=== PATIENT | male | born 1965 | race Native Hawaiian/Other Pacific Islander ===

== ENCOUNTER 2019-12-04 07:00 | Inpatient (IN) | payer OTHER ==
[~2019-12-04] VITALS: Ht 167.6 cm; Wt 78.0 kg
[~2019-12-04 07:00] MED LIST: LOSA1TAB37 PO; PRAV40TA3 PO; TENO300 PO
[2019-12-04 07:20] LABS: GLUCOSE,POINT OF CARE 179 MG/DL (70-110)
[2019-12-04 08:26] LABS: BASOPHILS % (AUTO) 0.9 % (0.0-2.0); EOSINOPHILS % (AUTO) 2.8 % (1.0-6.0); HEMATOCRIT 45.9 % (41-53); HEMOGLOBIN 15.9 g/dL (13.5-17.5); LYMPHOCYTES # (AUTO) 1.8 K/uL (1.0-4.8); LYMPHOCYTES % (AUTO) 20.4 % (22.0-44.0); MEAN CORPUSCULAR HEMOGLOBIN 31.1 pg (26.0-34.0); MEAN CORPUSCULAR HGB CONC 34.7 G/dL (31.0-37.0); MEAN CORPUSCULAR VOLUME 90 fL (80-100); MONOCYTES # (AUTO) 0.8 K/uL (0.1-1.0); MONOCYTES % (AUTO) 9.2 % (2.0-9.0); NEUTROPHILS # (AUTO) 5.9 K/uL (1.8-7.7); NEUTROPHILS % (AUTO) 66.7 % (40.0-70.0); PLATELET COUNT (AUTO) 168 K/uL (150-450); RED BLOOD CELL COUNT(AUTO) 5.13 MIL/uL (4.50-5.90); RED CELL DISTRIBUTION WIDTH 13.7 % (11.5-14.5)
[2019-12-04] MEDS ORDERED: ASPIRIN 325 MG TABLET PO ONE (08:30)
[2019-12-04 08:38] LABS: PROTHROMBIN TIME 10.4 SEC (9.4-11.6)
[2019-12-04 08:40] LABS: ANION GAP 7 mmol/L (8-16); CARBON DIOXIDE 27 mmol/L (22-29); CHLORIDE 103 mmol/L (98-107); CREATININE 1.09 mg/dL (0.60-1.30); GLOMERULAR FILTR. RATE CALC > 60 mL/min (>60); GLUCOSE,RANDOM 160 mg/dL (70-110); POTASSIUM 3.1 mmol/L (3.5-5.1); SODIUM SERUM 137 mmol/L (136-145); UREA NITROGEN, BLOOD 15 mg/dL (7-18)
[2019-12-04 08:48] LABS: ALANINE AMINOTRANSFERASE 136 U/L (12-78); ALBUMIN 3.4 g/dL (3.4-5.0); ALKALINE PHOSPHATASE 75 U/L (46-116); ASPARTATE AMINOTRANSFERASE 47 U/L (15-37); BILIRUBIN,TOTAL 0.4 mg/dL (0.1-1.0); CREATINE KINASE, TOTAL ONLY 54 U/L (39-308)
[2019-12-04 08:52] LABS: B-TYPE NATRIURETIC PEPTIDE 15 pg/mL (0-100)
[2019-12-04] MEDS ORDERED: 0.9% SODIUM CHLORIDE 10 ML SYRINGE IVP PRN (09:15)
[2019-12-04] MEDS ORDERED: MAGNESIUM HYDROXIDE SUSPENSION 30 ML UDCUP PO PRN (09:15)
[2019-12-04] MEDS ORDERED: POTASSIUM CHLORIDE 20 MEQ ER TABLET PO PRN (09:15)
[2019-12-04] MEDS ORDERED: OxyCODONE HCL/ACETAMINOPHEN 5-325 MG TABLET PO PRN (09:15)
[2019-12-04] MEDS ORDERED: MORPHINE SULFATE 2 MG/ML SYRINGE IVP PRN (09:15)
[2019-12-04] MEDS ORDERED: ACETAMINOPHEN 325 MG TABLET PO PRN ×2 (09:15)
[2019-12-04] MEDS ORDERED: ONDANSETRON HCL 4 MG/2 ML VIAL IVP PRN (09:15)
[2019-12-04] MEDS ORDERED: POTASSIUM CHL 10 MEQ/WATER 50 ML IV PRN (09:15)
[2019-12-04] MEDS ORDERED: DEXTROSE 50%-WATER 25 GM/50 ML SYRINGE IVP PRN (09:15)
[2019-12-04] MEDS ORDERED: POTASSIUM CHLORIDE 20 MEQ ER TABLET PO ONE (09:15)
[2019-12-04] MEDS: LISINOPRIL 10 MG TABLET PO SCH (09:52)
[2019-12-04 09:53] LABS: APPEARANCE,URINE CLEAR (CLEAR); BILIRUBIN,URINE NEGATIVE (NEGATIVE); GLUCOSE, URINE (UA) NEGATIVE (NEGATIVE); KETONES,URINE NEGATIVE (NEGATIVE); LEUKOCYTE ESTERASE ,URINE NEGATIVE (NEGATIVE); NITRATE,URINE NEGATIVE (NEGATIVE); OCCULT BLOOD,URINE NEGATIVE (NEGATIVE); PROTEIN,URINE NEGATIVE (NEGATIVE)
[2019-12-04] MEDS: CARVEDILOL 12.5 MG TABLET PO SCH ×2 (10:15→21:16)
[2019-12-04] MEDS ORDERED: TraMADol HCL 50 MG TABLET PO PRN (14:15)
[2019-12-04 14:17] VITALS: BP 140/73
[2019-12-04 16:00] VITALS: BP 155/93
[2019-12-04] MEDS: AmLODIPine BESYLATE 5 MG TABLET PO SCH (16:09)
[2019-12-04 20:15] VITALS: BP 131/72
[2019-12-04 20:52] LABS: GLUCOMETER DEV NAME(LOC) 5S.2A; GLUCOSE,POINT OF CARE 107 MG/DL (70-110)
[2019-12-04] MEDS: TICAGRELOR 90 MG TABLET PO SCH (21:16)
[2019-12-04] MEDS: DOCUSATE SODIUM 100 MG CAPSULE PO SCH (21:16)
[2019-12-04] MEDS: INSULIN LISPRO 100 UNITS/ML SQ PRN (21:22)
[2019-12-05 00:01] VITALS: BP 150/71
[2019-12-05 03:50] VITALS: BP 140/95
[2019-12-05 06:45] LABS: GLUCOMETER DEV NAME(LOC) 5N.2; GLUCOSE,POINT OF CARE 113 MG/DL (70-110)
[2019-12-05 06:50] LABS: GLUCOMETER DEV NAME(LOC) 5S.2A; GLUCOSE,POINT OF CARE 204 MG/DL (70-110)
[2019-12-05 08:08] LABS: BASOPHILS % (AUTO) 0.9 % (0.0-2.0); EOSINOPHILS % (AUTO) 4.4 % (1.0-6.0); HEMATOCRIT 47.8 % (41-53); HEMOGLOBIN 16.2 g/dL (13.5-17.5); LYMPHOCYTES # (AUTO) 1.9 K/uL (1.0-4.8); LYMPHOCYTES % (AUTO) 22.3 % (22.0-44.0); MEAN CORPUSCULAR HEMOGLOBIN 30.9 pg (26.0-34.0); MEAN CORPUSCULAR VOLUME 91 fL (80-100); MONOCYTES % (AUTO) 11.2 % (2.0-9.0); NEUTROPHILS # (AUTO) 5.3 K/uL (1.8-7.7); NEUTROPHILS % (AUTO) 61.2 % (40.0-70.0); PLATELET COUNT (AUTO) 166 K/uL (150-450); RED BLOOD CELL COUNT(AUTO) 5.26 MIL/uL (4.50-5.90); RED CELL DISTRIBUTION WIDTH 13.8 % (11.5-14.5)
[2019-12-05 08:12] LABS: ALANINE AMINOTRANSFERASE 142 U/L (12-78); ALBUMIN 3.4 g/dL (3.4-5.0); ALKALINE PHOSPHATASE 70 U/L (46-116); ANION GAP 8 mmol/L (8-16); ASPARTATE AMINOTRANSFERASE 57 U/L (15-37); BILIRUBIN,TOTAL 0.7 mg/dL (0.1-1.0); CALCIUM, TOTAL 8.4 mg/dL (8.8-10.5); CARBON DIOXIDE 26 mmol/L (22-29); CHLORIDE 105 mmol/L (98-107); CREATININE 0.88 mg/dL (0.60-1.30); GLOMERULAR FILTR. RATE CALC > 60 mL/min (>60); GLUCOSE,RANDOM 112 mg/dL (70-110); POTASSIUM 3.6 mmol/L (3.5-5.1); SODIUM SERUM 139 mmol/L (136-145); UREA NITROGEN, BLOOD 15 mg/dL (7-18)
[2019-12-05 08:29] VITALS: BP 150/89
[2019-12-05] MEDS: AmLODIPine BESYLATE 5 MG TABLET PO SCH (08:32)
[2019-12-05] MEDS: LISINOPRIL 10 MG TABLET PO SCH (08:32)
[2019-12-05] MEDS: CARVEDILOL 12.5 MG TABLET PO SCH (08:32)
[2019-12-05] MEDS: TICAGRELOR 90 MG TABLET PO SCH (08:32)
[2019-12-05] MEDS: DOCUSATE SODIUM 100 MG CAPSULE PO SCH (08:33)
[2019-12-05] MEDS ORDERED: ATORVASTATIN CALCIUM 40 MG TABLET PO SCH (09:00)
[2019-12-05] MEDS ORDERED: FAMOTIDINE 20 MG TABLET PO SCH (09:00)
[2019-12-05] MEDS ORDERED: ASPIRIN 81 MG CHEWABLE TABLET PO SCH (09:00)
[2019-12-05 12:12] VITALS: BP 131/84
[2019-12-05] MEDS: INSULIN LISPRO 100 UNITS/ML SQ PRN (12:15)
[2019-12-05] MEDS ORDERED: LISI-662 PO (14:54)
[2019-12-05] MEDS ORDERED: TICA90TA PO (14:55)
[2019-12-05] MEDS ORDERED: ASPI-728 PO (14:55)
[2019-12-05] MEDS ORDERED: ATOR40TA28 PO (14:55)
[2019-12-05] MEDS ORDERED: CARV12 PO (14:55)
[2019-12-05 15:35] LABS: GLUCOMETER DEV NAME(LOC) 5N.2; GLUCOSE,POINT OF CARE 149 MG/DL (70-110)
== END 2019-12-05 15:35 | disposition home or self-care (01) | DRG 303 ==
LOC: EMS 07:01 → 5S 12:42
PROVIDERS: ADMIT Internal Medicine; ATTEND Internal Medicine
DX: I25.119 Atherosclerotic heart disease of native coronary artery with unspecified angina pectoris (principal); B19.10 Unspecified viral hepatitis B without hepatic coma; F17.210 Nicotine dependence, cigarettes, uncomplicated; E87.6 Hypokalemia; E78.00 Pure hypercholesterolemia, unspecified; I10 Essential (primary) hypertension; E78.5 Hyperlipidemia, unspecified; Z95.5 Presence of coronary angioplasty implant and graft; Z82.49 Family history of ischemic heart disease and other diseases of the circulatory system; Z87.442 Personal history of urinary calculi; Z91.19 Patient's noncompliance with other medical treatment and regimen
CPT/HCPCS: 83735; 93005; 93306

== ENCOUNTER 2021-06-26 22:16 | Emergency (ER) | payer OTHER ==
[~2021-06-26] VITALS: Ht 167.6 cm; Wt 78.6 kg
[~2021-06-26 22:16] MED LIST changes: +ASPI-1450 PO; +ATOR40TA28 PO; +CARV12 PO; +LISI-894 PO; -LOSA1TAB37 PO; -PRAV40TA3 PO; -TENO300 PO; +TICA90TA PO
[2021-06-26] MEDS ORDERED: TICA90TA PO (23:00)
[2021-06-26] MEDS ORDERED: DULA0.75 SQ (23:00)
[2021-06-26] MEDS ORDERED: ISOS10TA16 PO (23:00)
[2021-06-26] MEDS ORDERED: INSU300I3 SQ (23:00)
[2021-06-26] MEDS ORDERED: METF-960 PO (23:00)
[2021-06-26] MEDS ORDERED: AMLO5TAB66 PO (23:00)
[2021-06-26] MEDS ORDERED: ROSU20TA73 PO (23:00)
[2021-06-26 23:06] LABS: APPEARANCE,URINE CLEAR (CLEAR); BILIRUBIN,URINE NEGATIVE (NEGATIVE); GLUCOSE, URINE (UA) NEGATIVE (NEGATIVE); KETONES,URINE NEGATIVE (NEGATIVE); LEUKOCYTE ESTERASE ,URINE NEGATIVE (NEGATIVE); NITRATE,URINE NEGATIVE (NEGATIVE); OCCULT BLOOD,URINE NEGATIVE (NEGATIVE); PROTEIN,URINE NEGATIVE (NEGATIVE)
[2021-06-27 00:56] LABS: BASOPHILS % (AUTO) 0.9 % (0.0-2.0); EOSINOPHILS % (AUTO) 3.9 % (1.0-6.0); HEMATOCRIT 49.3 % (41-53); HEMOGLOBIN 16.3 g/dL (13.5-17.5); LYMPHOCYTES % (AUTO) 23.9 % (22.0-44.0); MEAN CORPUSCULAR HEMOGLOBIN 31.2 pg (26.0-34.0); MEAN CORPUSCULAR HGB CONC 33.1 G/dL (31.0-37.0); MEAN CORPUSCULAR VOLUME 94 fL (80-100); MONOCYTES # (AUTO) 0.8 K/uL (0.1-1.0); NEUTROPHILS # (AUTO) 5.3 K/uL (1.8-7.7); NEUTROPHILS % (AUTO) 62.3 % (40.0-70.0); PLATELET COUNT (AUTO) 172 K/uL (150-450); RED BLOOD CELL COUNT(AUTO) 5.23 MIL/uL (4.50-5.90); RED CELL DISTRIBUTION WIDTH 14.1 % (11.5-14.5)
[2021-06-27 01:02] LABS: ANION GAP 10 mmol/L (8-16); CALCIUM, TOTAL 8.4 mg/dL (8.8-10.5); CARBON DIOXIDE 28 mmol/L (22-29); CHLORIDE 102 mmol/L (98-107); CREATININE 0.95 mg/dL (0.60-1.30); GLOMERULAR FILTR. RATE CALC > 60 mL/min (>60); GLUCOSE,RANDOM 219 mg/dL (70-110); POTASSIUM 4.4 mmol/L (3.5-5.1); SODIUM SERUM 140 mmol/L (136-145); UREA NITROGEN, BLOOD 12 mg/dL (7-18)
[2021-06-27 01:08] LABS: ALANINE AMINOTRANSFERASE 142 U/L (12-78); ALBUMIN 3.9 g/dL (3.4-5.0); ALKALINE PHOSPHATASE 57 U/L (46-116); ASPARTATE AMINOTRANSFERASE 50 U/L (15-37); BILIRUBIN,TOTAL 0.6 mg/dL (0.1-1.0); LIPASE 177 U/L (73-393); TOTAL PROTEIN, SERUM 7.7 g/dL (6.4-8.2)
[2021-06-27 01:21] VITALS: BP 136/69
[2021-06-27] MEDS ORDERED: ACETAMINOPHEN 500 MG TABLET PO ONE (01:30)
[2021-06-27] MEDS ORDERED: LIDOCAINE 5% TRANSDERMAL PATCH TD ONE (01:30)
[2021-06-27] MEDS ORDERED: IBUPROFEN 600 MG TABLET PO ONE (01:30)
== END 2021-06-27 02:06 | disposition home or self-care (01) ==
LOC: EMS 22:17
DX: S39.012A Strain of muscle, fascia and tendon of lower back, initial encounter (principal); I10 Essential (primary) hypertension; E78.00 Pure hypercholesterolemia, unspecified; F17.210 Nicotine dependence, cigarettes, uncomplicated; Z79.82 Long term (current) use of aspirin; Z79.84 Long term (current) use of oral hypoglycemic drugs; X58.XXXA Exposure to other specified factors, initial encounter; Y93.89 Activity, other specified; Y92.89 Other specified places as the place of occurrence of the external cause; Y99.8 Other external cause status
CPT/HCPCS: 71045; 80053; 81003; 83690; 84484; 85025; 93005; 99285; 36415-L1; 36415-TC

== ENCOUNTER → 2025-02-23 | Outpatient (CLI) | payer OTHER ==
[~2025-02-23] MED LIST changes: +AMLO5TAB66 PO; +DULA0.75 SQ; +INSU300I3 SQ; +ISOS10TA16 PO; -LISI-894 PO; +METF-1211 PO; +ROSU20TA98 PO
[2025-02-23 09:52] LABS: APPEARANCE,URINE CLEAR (CLEAR); BILIRUBIN,URINE NEGATIVE (NEGATIVE); COLOR,URINE LIGHT YELLOW (YELLOW); GLUCOSE, URINE (UA) >=1000 mg/dL (NEGATIVE); KETONES,URINE TRACE mg/dL (NEGATIVE); LEUKOCYTE ESTERASE ,URINE NEGATIVE (NEGATIVE); NITRATE,URINE NEGATIVE (NEGATIVE); OCCULT BLOOD,URINE NEGATIVE (NEGATIVE); PROTEIN,URINE TRACE mg/dL (NEGATIVE); SPECIFIC GRAVITIY, URINE 1.046 (1.003-1.030); UROBILINOGEN,URINE <=1.0 mg/dL (<=1.0)
[2025-02-23 10:01] LABS: BASOPHILS % (AUTO) 1.5 % (0.0-2.0); HEMATOCRIT 50.8 % (41-53); HEMOGLOBIN 16.9 g/dL (13.5-17.5); LYMPHOCYTES # (AUTO) 1.5 K/uL (1.0-4.8); LYMPHOCYTES % (AUTO) 24.1 % (22.0-44.0); MEAN CORPUSCULAR HGB CONC 33.3 G/dL (31.0-37.0); MEAN CORPUSCULAR VOLUME 90 fL (80-100); MONOCYTES # (AUTO) 0.7 K/uL (0.1-1.0); MONOCYTES % (AUTO) 10.4 % (2.0-9.0); NEUTROPHILS # (AUTO) 3.8 K/uL (1.8-7.7); PLATELET COUNT (AUTO) 163 K/uL (150-450); RED BLOOD CELL COUNT(AUTO) 5.63 MIL/uL (4.50-5.90); RED CELL DISTRIBUTION WIDTH 13.3 % (11.5-14.5); WHITE BLOOD COUNT (AUTO) 6.3 K/uL (4.5-11.0)
[2025-02-23 10:06] LABS: RBC,URINE None Seen /HPF (0-2); WBC,URINE None Seen /HPF (0-5)
[2025-02-23 10:07] LABS: BACTERIA,URINE None Seen /HPF (None Seen)
[2025-02-23 10:28] LABS: ALANINE AMINOTRANSFERASE 219 U/L (12-78); ALBUMIN 3.5 g/dL (3.4-5.0); ALKALINE PHOSPHATASE 63 U/L (46-116); ASPARTATE AMINOTRANSFERASE 81 U/L (15-37); BILIRUBIN,TOTAL 0.5 mg/dL (0.1-1.0); CALCIUM, TOTAL 8.6 mg/dL (8.8-10.5); CHOL/HDL RATIO 5.1 (4.2-7.3); CHOLESTEROL 243 mg/dL (131-200); CREATININE 0.85 mg/dL (0.60-1.30); FREE T4 (FREE THYROXINE) 1.18 ng/dL (0.76-1.46); GLOMERULAR FILTR. RATE CALC > 60 mL/min (>60); GLUCOSE,RANDOM 284 mg/dL (70-110); HDL CHOLESTEROL 48 mg/dL (40-60); LDL CHOL (CALC.) 155 mg/dL (0-130); THYROID STIMULATING HORMONE 1.37 uIU/mL (0.36-3.74); TOTAL PROTEIN, SERUM 7.3 g/dL (6.4-8.2); TRIGLYCERIDES 199 mg/dL (15-150); UREA NITROGEN, BLOOD 14 mg/dL (7-18)
[2025-02-23 10:46] LABS: ANION GAP 9 mmol/L (8-16); CARBON DIOXIDE 26 mmol/L (22-29); CHLORIDE 103 mmol/L (98-107); POTASSIUM 4.4 mmol/L (3.5-5.1); SODIUM SERUM 138 mmol/L (136-145); URIC ACID 4.2 mg/dL (2.6-7.2)
[2025-02-23 11:06] LABS: HEMOGLOBIN A1C 13.9 % (3.8-5.6)
[2025-02-24 08:07] LABS: CREATININE, URINE (mALB) 139.5 mg/dL (Not Estab.)
[2025-02-25 02:07] LABS: PSA % FREE 36.7 %; PSA FREE 0.22 ng/mL
== END | disposition home or self-care (01) ==
LOC: LABMN 09:27
PROVIDERS: ATTEND Physician Assistant
DX: E11.8 Type 2 diabetes mellitus with unspecified complications (principal); I25.10 Atherosclerotic heart disease of native coronary artery without angina pectoris; D68.69 Other thrombophilia; B18.1 Chronic viral hepatitis B without delta-agent
CPT/HCPCS: 80053; 80061; 81001; 82043; 82306; 82570; 83036; 84154; 84439; 84443; 84550; 85025

== ENCOUNTER 2025-05-04 21:11 | Emergency (ER) | payer OTHER ==
[~2025-05-04] VITALS: Ht 167.6 cm; Wt 65.9 kg
[2025-05-04] MEDS ORDERED: MAGN125C PO (21:28)
[2025-05-04] MEDS ORDERED: EMPA25TA3 PO (21:28)
[2025-05-04 21:35] LABS: GLUCOMETER DEV NAME(LOC) ER.7; GLUCOSE,POINT OF CARE 268 MG/DL (70-110)
[2025-05-04 21:50] VITALS: TEMP 98.205296
[2025-05-04 22:52] LABS: PLATELET COUNT (AUTO) 189 K/uL (150-450); RED BLOOD CELL COUNT(AUTO) 5.08 MIL/uL (4.50-5.90); RED CELL DISTRIBUTION WIDTH 14.0 % (11.5-14.5); WHITE BLOOD COUNT (AUTO) 7.7 K/uL (4.5-11.0)
[2025-05-04 22:57] LABS: CALCIUM, TOTAL 9.0 mg/dL (8.8-10.5); CREATININE 0.85 mg/dL (0.60-1.30); GLOMERULAR FILTR. RATE CALC > 60 mL/min (>60); GLUCOSE,RANDOM 192 mg/dL (70-110); SODIUM SERUM 138 mmol/L (136-145); UREA NITROGEN, BLOOD 15 mg/dL (7-18)
[2025-05-04 23:06] LABS: TROPONIN I-HIGH SENSITIVITY 4 ng/L (<76)
[2025-05-05 00:27] VITALS: BP 116/66; PULSE 60; RESP 20; O2SAT 95
[2025-05-05] MEDS ORDERED: ASPI-1444 PO (11:24)
[2025-05-05] MEDS ORDERED: ISOS30TA11 PO (11:24)
[2025-05-05] MEDS ORDERED: CARV25TA32 PO (11:24)
[2025-05-05] MEDS ORDERED: AMLO10TA55 PO (11:24)
[2025-05-05] MEDS ORDERED: METF-446 PO (11:24)
== END 2025-05-05 00:54 | disposition home or self-care (01) ==
LOC: EMS 21:11
DX: I63.9 Cerebral infarction, unspecified (principal); E11.9 Type 2 diabetes mellitus without complications; E78.00 Pure hypercholesterolemia, unspecified; I10 Essential (primary) hypertension; F17.210 Nicotine dependence, cigarettes, uncomplicated; Z95.5 Presence of coronary angioplasty implant and graft; Z87.442 Personal history of urinary calculi; Z79.899 Other long term (current) drug therapy; Z79.82 Long term (current) use of aspirin; Z98.890 Other specified postprocedural states
CPT/HCPCS: 70450; 80048; 82962; 83735; 84484; 85025; 93005; 99285

== ENCOUNTER 2025-05-05 11:16 | Inpatient (IN) | payer OTHER ==
[~2025-05-05] VITALS: Ht 167.6 cm; Wt 66.0 kg
[~2025-05-05 11:16] MED LIST changes: -ATOR40TA28 PO; -DULA0.75 SQ; +EMPA25TA3 PO; -INSU300I3 SQ; +MAGN125C PO; -ROSU20TA98 PO; -TICA90TA PO
[2025-05-05] MEDS ORDERED: CARV25TA32 PO (11:24)
[2025-05-05] MEDS ORDERED: METF-446 PO (11:24)
[2025-05-05] MEDS ORDERED: ISOS30TA11 PO (11:24)
[2025-05-05] MEDS ORDERED: AMLO10TA55 PO (11:24)
[2025-05-05] MEDS ORDERED: ASPI-1444 PO (11:24)
[2025-05-05 11:59] LABS: PLATELET COUNT (AUTO) 195 K/uL (150-450); RED BLOOD CELL COUNT(AUTO) 5.34 MIL/uL (4.50-5.90); RED CELL DISTRIBUTION WIDTH 14.0 % (11.5-14.5); WHITE BLOOD COUNT (AUTO) 9.3 K/uL (4.5-11.0)
[2025-05-05 12:01] LABS: CALCIUM, TOTAL 8.8 mg/dL (8.8-10.5); CREATININE 0.90 mg/dL (0.60-1.30); GLOMERULAR FILTR. RATE CALC > 60 mL/min (>60); GLUCOSE,RANDOM 154 mg/dL (70-110); SODIUM SERUM 140 mmol/L (136-145); UREA NITROGEN, BLOOD 18 mg/dL (7-18)
[2025-05-05 12:08] LABS: ASPARTATE AMINOTRANSFERASE 18.0 U/L (15-37); CREATINE KINASE, TOTAL ONLY 75.0 U/L (39-308); TOTAL PROTEIN, SERUM 7.8 g/dL (6.4-8.2)
[2025-05-05 12:09] LABS: TROPONIN I-HIGH SENSITIVITY 6 ng/L (<76)
[2025-05-05 12:10] LABS: APPEARANCE,URINE CLEAR (CLEAR); GLUCOSE, URINE (UA) >=1000 mg/dL (NEGATIVE); LEUKOCYTE ESTERASE ,URINE NEGATIVE (NEGATIVE); NITRATE,URINE NEGATIVE (NEGATIVE); OCCULT BLOOD,URINE NEGATIVE (NEGATIVE); SPECIFIC GRAVITIY, URINE 1.034 (1.003-1.030)
[2025-05-05 12:19] LABS: SQUAMOUS EPITHELIAL CELL,UR Rare /LPF (None Seen)
[2025-05-05] MEDS ORDERED: ONDANSETRON HCL 4 MG/2 ML VIAL IVP PRN (13:15)
[2025-05-05] MEDS ORDERED: ACETAMINOPHEN 325 MG TABLET PO PRN (13:15)
[2025-05-05] MEDS ORDERED: DEXTROSE 50%-WATER 25 GM/50 ML SYRINGE IVP PRN (13:15)
[2025-05-05] MEDS: ATORVASTATIN CALCIUM 40 MG TABLET PO SCH (14:49)
[2025-05-05] MEDS: ASPIRIN 81 MG CHEWABLE TABLET PO SCH (14:57)
[2025-05-05 15:24] LABS: CHOL/HDL RATIO 5.2 (4.2-7.3); LDL CHOL (CALC.) 159.0 mg/dL (0-130)
[2025-05-05] MEDS: HEPARIN SODIUM,PORCINE 5,000 UNITS/ML VIAL SQ SCH (15:52)
[2025-05-05 18:00] VITALS: BP 140/74; PULSE 63; RESP 18; TEMP 98.3; O2SAT 100
[2025-05-05 20:00] VITALS: BP 131/74; PULSE 66; RESP 20; TEMP 98.8; O2SAT 99
[2025-05-05 20:15] LABS: GLUCOMETER DEV NAME(LOC) 5S.1D; GLUCOSE,POINT OF CARE 124 MG/DL (70-110)
[2025-05-05] MEDS: INSULIN LISPRO 100 UNITS/ML SQ PRN (20:57)
[2025-05-05] MEDS: DOCUSATE SODIUM 100 MG CAPSULE PO SCH (21:00)
[2025-05-06] VITALS (7 sets, daily range): BP systolic 121–154; BP diastolic 70–85; PULSE 60–89; RESP 17–19; TEMP 97.3–98.2; O2SAT 94–100
[2025-05-06 05:25] LABS: GLUCOMETER DEV NAME(LOC) 5S.1D; GLUCOSE,POINT OF CARE 186 MG/DL (70-110)
[2025-05-06 06:15] LABS: PLATELET COUNT (AUTO) 179 K/uL (150-450); RED BLOOD CELL COUNT(AUTO) 5.13 MIL/uL (4.50-5.90); RED CELL DISTRIBUTION WIDTH 14.0 % (11.5-14.5); WHITE BLOOD COUNT (AUTO) 7.0 K/uL (4.5-11.0)
[2025-05-06 06:22] LABS: CALCIUM, TOTAL 8.6 mg/dL (8.8-10.5); CREATININE 0.67 mg/dL (0.60-1.30); GLOMERULAR FILTR. RATE CALC > 60 mL/min (>60); GLUCOSE,RANDOM 148 mg/dL (70-110); SODIUM SERUM 138 mmol/L (136-145); UREA NITROGEN, BLOOD 18 mg/dL (7-18)
[2025-05-06] MEDS: FAMOTIDINE 20 MG TABLET PO SCH (08:27)
[2025-05-06 10:56] LABS: GLUCOMETER DEV NAME(LOC) 5S.1D; GLUCOSE,POINT OF CARE 182 MG/DL (70-110)
[2025-05-06 18:05] LABS: GLUCOMETER DEV NAME(LOC) 5S.1D; GLUCOSE,POINT OF CARE 285 MG/DL (70-110)
[2025-05-06 18:20] LABS: GLUCOMETER DEV NAME(LOC) 5S.2D; GLUCOSE,POINT OF CARE 202 MG/DL (70-110)
[2025-05-07 00:03] VITALS: BP 153/74; PULSE 63; RESP 16; TEMP 98.4; O2SAT 95
[2025-05-07 04:01] VITALS: BP 136/71; PULSE 58; RESP 16; TEMP 98.4; O2SAT 95
[2025-05-07 04:41] LABS: GLUCOMETER DEV NAME(LOC) 5S.2D; GLUCOSE,POINT OF CARE 208 MG/DL (70-110)
[2025-05-07 07:32] LABS: PLATELET COUNT (AUTO) 180 K/uL (150-450); RED BLOOD CELL COUNT(AUTO) 5.11 MIL/uL (4.50-5.90); RED CELL DISTRIBUTION WIDTH 13.7 % (11.5-14.5); WHITE BLOOD COUNT (AUTO) 5.5 K/uL (4.5-11.0)
[2025-05-07 07:42] LABS: CALCIUM, TOTAL 8.1 mg/dL (8.8-10.5); CREATININE 0.70 mg/dL (0.60-1.30); GLOMERULAR FILTR. RATE CALC > 60 mL/min (>60); GLUCOSE,RANDOM 189 mg/dL (70-110); SODIUM SERUM 140 mmol/L (136-145); UREA NITROGEN, BLOOD 17 mg/dL (7-18)
[2025-05-07 08:21] LABS: GLUCOMETER DEV NAME(LOC) 5S.2D; GLUCOSE,POINT OF CARE 197 MG/DL (70-110)
[2025-05-07 08:27] VITALS: BP 125/79; PULSE 54; RESP 18; TEMP 97.5; O2SAT 97
[2025-05-07] MEDS: CLOPIDOGREL BISULFATE 75 MG TABLET PO SCH (08:51)
[2025-05-07 08:59] LABS: ASPARTATE AMINOTRANSFERASE 15.0 U/L (15-37); CHOL/HDL RATIO 4.4 (4.2-7.3); LDL CHOL (CALC.) 131.0 mg/dL (0-130); TOTAL PROTEIN, SERUM 7.1 g/dL (6.4-8.2)
[2025-05-07] MEDS ORDERED: CLOP75TA83 PO (10:21)
[2025-05-07] MEDS ORDERED: ATOR40TA28 PO (10:21)
[2025-05-07 12:07] VITALS: BP 129/78; PULSE 57; RESP 18; TEMP 97.3; O2SAT 97
[2025-05-07 18:50] LABS: GLUCOMETER DEV NAME(LOC) 5S.2D; GLUCOSE,POINT OF CARE 175 MG/DL (70-110)
== END 2025-05-07 13:15 | disposition home or self-care (01) | DRG 66 ==
LOC: EMS 11:19 → EDH 13:03 → 5S 15:00
PROVIDERS: ADMIT Internal Medicine; ATTEND Internal Medicine
DX: I63.89 Other cerebral infarction (principal); E11.9 Type 2 diabetes mellitus without complications; I10 Essential (primary) hypertension; E78.00 Pure hypercholesterolemia, unspecified; F17.200 Nicotine dependence, unspecified, uncomplicated; Z79.82 Long term (current) use of aspirin; Z82.49 Family history of ischemic heart disease and other diseases of the circulatory system; Z87.442 Personal history of urinary calculi; Z95.5 Presence of coronary angioplasty implant and graft
CPT/HCPCS: 70551; 71045; 80048; 80061; 80076; 81001; 82550; 82962; 83735; 83880; 84484; 85025; 85610; 85730; 92610; 93005; 93306; 93971; 97110; 97116; 97161; 97165; 99285; J1644; 36415-L1; 36415-TC